=== PATIENT | male | born 1995 | race Caucasian/White ===

== ENCOUNTER 2018-09-07 15:59 | Emergency (ER) | payer OTHER ==
[~2018-09-07] VITALS: Ht 182.9 cm; Wt 77.1 kg
[~2018-09-07 15:59] MED LIST: BACTRIM DS TAB1 EACH PO; IBUPROFEN 800800 M1 PO; KEFLEX500 MG PO; LIDOCAINE 22 %/30 GM MM; NOHOMEMEDICATIONS; TRAMADOL 50 MG50 MG PO; ULTRAM 50MG TAB50 MG PO
[2018-09-07] MEDS ORDERED: DOXYCYCLINE 10100 MG PO (16:20)
[2018-09-07 16:28] VITALS: BP 138/81
== END 2018-09-07 16:29 | disposition home or self-care (01) ==
LOC: M.ERS 15:59
DX: J32.1 Chronic frontal sinusitis (principal)

== ENCOUNTER 2019-10-21 13:00 | Emergency (ER) | payer OTHER ==
[~2019-10-21] VITALS: Ht 177.8 cm; Wt 90.7 kg
[~2019-10-21 13:00] MED LIST changes: +DOXYCYCLINE 10100 MG PO
[2019-10-21] MEDS ORDERED: AMOXICILLIN 50500 MG PO (13:28)
[2019-10-21] MEDS ORDERED: TYLENOL WITH CO1 TA1 PO (13:28)
[2019-10-21 13:38] VITALS: BP 130/80
== END 2019-10-21 13:38 | disposition home or self-care (01) ==
LOC: M.ERS 13:00
DX: K04.7 Periapical abscess without sinus (principal)

== ENCOUNTER 2019-11-17 14:14 | Emergency (ER) | payer OTHER ==
[~2019-11-17] VITALS: Ht 177.8 cm; Wt 90.7 kg
[~2019-11-17 14:14] MED LIST changes: +AMOXICILLIN 50500 MG PO; +TYLENOL WITH CO1 TA1 PO
[2019-11-17] MEDS ORDERED: DICLOFENAC SOD50 M1 PO (15:34)
[2019-11-17] MEDS ORDERED: FLEXERIL PO (15:34)
[2019-11-17 15:51] VITALS: BP 127/70
== END 2019-11-17 15:51 | disposition home or self-care (01) ==
LOC: M.ERS 14:14
DX: M54.5 Low back pain (principal); M54.6 Pain in thoracic spine; M79.18 Myalgia, other site

== ENCOUNTER 2020-06-18 20:28 | Emergency (ER) | payer OTHER ==
[~2020-06-18] VITALS: Ht 177.8 cm; Wt 86.2 kg
[~2020-06-18 20:28] MED LIST changes: +DICLOFENAC SOD50 M1 PO; +FLEXERIL PO
[2020-06-18] MEDS ORDERED: PREDNISONE 20 M20 M1 PO (21:44)
[2020-06-18 21:49] VITALS: BP 123/74
== END 2020-06-18 21:49 | disposition home or self-care (01) ==
LOC: M.ERS 20:28
DX: Z77.098 Contact with and (suspected) exposure to other hazardous, chiefly nonmedicinal, chemicals (principal); R06.02 Shortness of breath; J02.9 Acute pharyngitis, unspecified; R05 Cough; Z20.822 Contact with and (suspected) exposure to COVID-19; Z98.890 Other specified postprocedural states

== ENCOUNTER 2020-06-29 13:55 | Emergency (ER) | payer OTHER ==
[~2020-06-29] VITALS: Ht 177.8 cm; Wt 90.7 kg
[~2020-06-29 13:55] MED LIST changes: +PREDNISONE 20 M20 M1 PO
[2020-06-29 14:52] VITALS: BP 121/65
== END 2020-06-29 14:53 | disposition home or self-care (01) ==
LOC: M.ERS 13:55
DX: R73.9 Hyperglycemia, unspecified (principal); Z20.822 Contact with and (suspected) exposure to COVID-19

== ENCOUNTER 2021-01-12 11:42 | Emergency (ER) | payer OTHER ==
[~2021-01-12] VITALS: Ht 177.8 cm; Wt 90.7 kg
[2021-01-12] MEDS ORDERED: FLEXERIL PO (12:00)
[2021-01-12] MEDS ORDERED: MEDROLDOSEPACK PO (12:00)
[2021-01-12] MEDS ORDERED: NAPROSYN500 MG PO (12:00)
[2021-01-12 12:11] VITALS: BP 127/97
== END 2021-01-12 12:12 | disposition home or self-care (01) ==
LOC: M.ERS 11:42
DX: S29.012A Strain of muscle and tendon of back wall of thorax, initial encounter (principal); Z98.890 Other specified postprocedural states; X50.0XXA Overexertion from strenuous movement or load, initial encounter; Y93.89 Activity, other specified; Y92.89 Other specified places as the place of occurrence of the external cause; Y99.0 Civilian activity done for income or pay

== ENCOUNTER 2021-03-15 16:05 | Emergency (ER) | payer OTHER ==
[~2021-03-15] VITALS: Ht 177.8 cm; Wt 90.7 kg
[~2021-03-15 16:05] MED LIST changes: +MEDROLDOSEPACK PO; +NAPROSYN500 MG PO
[2021-03-15 16:49] VITALS: BP 130/73
== END 2021-03-15 18:00 | disposition home or self-care (01) ==
LOC: M.ERS 16:05
DX: J02.9 Acute pharyngitis, unspecified (principal); Z20.822 Contact with and (suspected) exposure to COVID-19

== ENCOUNTER 2021-03-29 12:44 | Emergency (ER) | payer OTHER ==
[~2021-03-29] VITALS: Ht 180.3 cm; Wt 90.7 kg
[2021-03-29] MEDS ORDERED: HYDROCORTISONE3011 TOP (14:08)
[2021-03-29 14:54] VITALS: BP 125/81
== END 2021-03-29 14:56 | disposition home or self-care (01) ==
LOC: M.ERS 12:44
DX: B09 Unspecified viral infection characterized by skin and mucous membrane lesions (principal)

== ENCOUNTER 2021-05-15 19:38 | Emergency (ER) | payer OTHER ==
[~2021-05-15] VITALS: Ht 177.8 cm; Wt 90.7 kg
[~2021-05-15 19:38] MED LIST changes: +HYDROCORTISONE3011 TOP
[2021-05-15] MEDS ORDERED: FLEXERIL PO (20:55)
[2021-05-15] MEDS ORDERED: HYDROCODON-ACE1 EAC8 PO (20:59)
[2021-05-15 21:14] VITALS: BP 130/77
== END 2021-05-15 21:14 | disposition home or self-care (01) ==
LOC: M.ERS 19:38
DX: R51.9 Headache, unspecified (principal); R11.0 Nausea; R10.9 Unspecified abdominal pain; Z98.890 Other specified postprocedural states